=== PATIENT | female | born 2000 | race Caucasian/White ===

== ENCOUNTER 2019-12-16 20:47 | Emergency (ER) | payer MEDICAID ==
[~2019-12-16] VITALS: Ht 165.1 cm; Wt 63.2 kg
[2019-12-16 20:49] VITALS: BP 128/71
[2019-12-16] MEDS ORDERED: PREN-217 PO (20:59)
== END 2019-12-16 21:30 | disposition left against medical advice (07) ==
LOC: EMS 20:53
DX: R10.9 Unspecified abdominal pain (principal); Z53.21 Procedure and treatment not carried out due to patient leaving prior to being seen by health care provider